=== PATIENT | male | born 2000 | race Caucasian/White ===

== ENCOUNTER 2022-01-25 02:46 | Emergency (ER) | payer OTHER ==
[2022-01-25] MEDS ORDERED: Morphine 4 MG/ML VIAL ONE (03:08)
== END 2022-01-25 03:50 | disposition home or self-care (01) ==
LOC: CSHERS 02:46
DX: S70.02XA Contusion of left hip, initial encounter (principal); G40.909 Epilepsy, unspecified, not intractable, without status epilepticus; W01.0XXA Fall on same level from slipping, tripping and stumbling without subsequent striking against object, initial encounter; Y93.01 Activity, walking, marching and hiking; Y92.090 Kitchen in other non-institutional residence as the place of occurrence of the external cause
CPT/HCPCS: 72170; 96372; J2270